=== PATIENT | female | born 1955 | race Caucasian/White ===

== ENCOUNTER 2019-08-23 10:40 | Outpatient (CLI) | payer OTHER, SELFPAY ==
--- NOTE | 2019-08-23 10:46 | US_ITS ---
WS: [id number] INDICATION: Right axilla TECHNIQUE: Ultrasound right axilla FINDINGS: Ultrasound right axillary area of concern. Comparison made to outside MRI breast. Breast re port reviewed. No evidence of axillary lymphadenopathy. No axillary mass or lesion to correspond to findings on outs conrado MRI report. Bilateral breast implants. US/US soft tissue/extremity 82107 IMPRESSION: Normal right axilla. No adenopathy. No cystic or solid mass. Consid er chest CT in further evaluation.
== END 2019-08-23 10:41 | disposition home or self-care (01) ==
LOC: RAD 10:44
PROVIDERS: Family Provider Nurse Practitioner Family; PCP Nurse Practitioner Family; Visit Provider Internal Medicine Medical Oncology
DX: Q83.1 Accessory breast (principal)
CPT/HCPCS: 76882

== ENCOUNTER 2020-04-17 12:51 | Outpatient (CLI) | payer MEDICARE, BC, SELFPAY ==
--- NOTE | 2020-04-17 18:15 | ONC FU_ITS ---
Dr. Silverio Patient Follow-Up Note Patient: Claudia Thapa Unit #: [id number]: 1955 Dicatated By: Lenny Silverio M.D.Date of Visit:Apr 17, 2020 Onc Med Follow-up/Prog Note Chief Complaint: Breast cancer. History of Present Illness: This is a 65 year-old woman with grade 2 invasive ductal carcinoma of the right breast, ER/WI positive and HER-2/rodriguez positive. By clinical evaluation, her disease at initial diagnosis appeared to be stage IIIA (T1c, N2, M0). She had presented in February 2014 with a palpable lump in the upper outer quadrant of the right breast near the right axilla. She had previously undergone breast augmentation with silicon implants, and she initially opted to see her plastic surgeon for evaluation. She underwent excisional biopsy of the mass on 03/13/2014. Pathology was consistent with metastatic breast carcinoma within an intramammary lymph node. The tumor measured 5.4 cm in greatest dimension. It was noted to be encapsulated. It was ER positive at 99% and WI positive at 32%. The HER-2/rodriguez was 2+ by IHC. It did show overexpression of HER-2/rodriguez by FISH with an amplification ratio of 2.6. She then had further evaluation with bilateral breast MRI which showed an irregular enhancing density in the mid segment of the right breast at the 7 to 8 o'clock position. It was estimated at 1.5 cm to 1.9 cm. Approximately 7 mm posterior to this was a 4 mm enhancing nodule. There were no other suspicious findings in the breast, but there were at least 2 abnormally enlarged lymph nodes in the axilla together measuring 30 to 31 mm and an additional smaller lymph nodes also were identified. There were no abnormal areas noted in the left breast, but there were lymph nodes noted in the left axilla, including one node which was estimated at 1.8 cm. She subsequently underwent ultrasound directed needle biopsies of the 2 right breast lesions, one at 7:30 position which did show invasive ductal carcinoma, grade 2. The other, at the 7 o'clock position, showed fibroadenoma. She was then seen at [facility]. She had further evaluation with repeat right breast ultrasound which showed a 0.8 x 0.7 x 0.3 cm lobular hypoechoic mass in the right breast 7 o'clock position, located 7 cm from the nipple. At the 8 o'clock position in the right breast, 10 cm from the nipple, there was a 1.0 x 0.7 x 0.4 cm irregular hypoechoic mass which was thought to correlate with the known malignancy. A small adjacent hypoechoic focus was thought to most likely represent post biopsy change. Also noted was a 0.9 x 0.6 x 0.3 cm intramammary lymph node with a mildly thickened cortex in the 9 o'clock position, 14 cm from the nipple. It was targeted for needle biopsy. There were at least 7 level I axillary lymph nodes identified, several containing silicone. A 2.1 x 1.8 x 1.7 cm node was targeted for needle biopsy. There were no suspicious level II or level III axillary lymph nodes. A prominent oval hypoechoic lymph node in the right supraclavicular region measuring 0.6 cm also was targeted for needle biopsy. Pathology from the needle biopsies showed metastatic adenocarcinoma consistent with breast primary in the right axillary lymph node, but no malignancy in the right breast intramammary lymph node or in the right supraclavicular lymph node. Her staging evaluation showed no evidence of metastatic disease. Per recommendations from [facility], she was given neoadjuvant chemotherapy with 4 cycles of Adriamycin/cyclophosphamide followed by 4 cycles of Perjeta/Taxotere/Herceptin. She completed her 4th cycle of Adriamycin/cyclophosphamide on 06/13/14. She had a followup visit at [facility] on 07/08/14. A repeat ultrasound study at that time did show evidence of treatment response with a decrease in the size of an index asked her lymph node to 1.7 x 1.2 x 1.1 cm compared to 2.8 x 1.8 x 1.8 cm on the pretreatment study. There were no abnormal internal mammary, infraclavicular or supraclavicular lymph nodes identified. Repeat MRI of the abdomen showed the previously described indeterminate liver lesion to be less conspicuous and likely benign. Additional T2 right liver lesions were felt to be likely reflect atypical hemangiomas and a simple cyst. There was no evidence of metastatic disease. She completed her 1st cycle of Perjeta/Taxotere/Herceptin on 07/12/14. She unfortunately experienced multiple toxicities, including fatigue, nausea, diarrhea, and severe indigestion. She also developed dysequilibrium and she experienced periodic electric shocks, which lasted for about 4 days. She also had generalized bone aching following her Neulasta injection, but she did show gradual recovery. She was given a 20% dose reduction in the Taxotere with the remaining 3 cycles. She completed the 4th cycle on 09/12/14. She underwent right skin-sparing mastectomy, right axillary sentinel lymph node dissection, right axillary lymph node dissection, and left prophylactic skin-sparing mastectomy on 10/23/2014. Pathology of the right breast showed 3 nests of residual invasive viable carcinoma. The appearance was suspicious for presentation as tumor emboli within lymphatic spaces. These measured 1.2 mm in greatest extent. The treated tumor bed measured 0.5 x 0.3 cm. The viable tumor cellularity was estimated at approximately 0.5%. Ductal carcinoma in situ was not identified. There was metastatic carcinoma measuring 0.9 cm in one right sentinel axillary lymph node. Two additional right sentinel axillary lymph nodes were negative, but right axillary lymph node dissection did show involvement in 1/16 lymph nodes measuring 0.8 cm in greatest extent. It was negative for extracapsular extension. Pathologic staging was ypT1a, ypN1a. The left mastectomy showed no malignancy in the breast and no involvement in 2 lymph nodes. Following the mastectomy she continued Herceptin on a 3-week dosing schedule. In November 2014 she also started adjuvant hormonal therapy with Femara. In April 2015 she underwent additional reconstructive surgery, which included removal of the expanders and placement of implants. The procedure also included removal of her Port-A-Cath. In May I had her stop Femara temporarily due to an increase in her musculoskeletal pain, but she had subsequently restarted it. She received her final dose of Herceptin on 07/24/2015. I had seen her for a followup visit on 10/21/2015. At that time she did appear to be having increasing symptoms related to Femara, including fatigue and musculoskeletal pain. I did have her stop the medication again. In November 2015 she was seen because of concerns of a possible new lump in her upper chest. Restaging PET/CT on 12/25/2015 showed no evidence for metabolically active malignancy. As of her follow-up visit on 01/20/2016 she had noted significant symptomatic improvement with stopping Femara. I had then recommended changing her adjuvant hormonal therapy to exemestane. She did agree to start taking it in April 2016. I had seen her for a follow-up visit on 11/25/2016. At that time she reported some mild fatigue with the exemestane, and she also had developed plantar fasciitis. She otherwise appeared to be tolerating the treatment well, and there was no evidence clinically for recurrence of her breast cancer. In February 2017 she had called to report a significant increase in her musculoskeletal pain. It was mainly in the hands and left knee, which also was having lower back pain as well as some pain in the right hip area. She was significantly more fatigued. She stopped the exemestane as of 03/02/2017. I had seen her for a follow-up visit on 03/18/2017. At that point her symptoms had not improved significantly. Bone scan on 03/24/2017 showed arthritic activity in the left knee and left wrist and probable periodontal type activity in the left maxilla. There was no evidence of metastatic disease. During this time she also had seen Dr. Burt. Her evaluation with him included an MRI of the left knee on 03/29/2017. It showed an oblique tear in the posterior horn of the meniscus, a mild sprain in the medial collateral ligament, and osseous contusion of the medial femoral condyle. It was able to be managed conservatively. I had seen her for a followup visit in April 2017. I discussed the possibility of continuing adjuvant hormonal therapy with tamoxifen. She ultimately agreed and began tamoxifen 20 mg daily in May 2017. She was then offered the option to take additional adjuvant therapy with neratinib following its approval for use in HER-2/rodriguez positive breast cancer. She started treatment in July 2017 at the recommended dosage of 240 mg daily. As of her follow-up visit on 11/30/2017, she appeared to be tolerating it with acceptable toxicity. In June 2018, at 10 months of treatment, she stopped both tamoxifen and neratinib due to complaints of pressure in her bladder area. Her CT abdomen/pelvis showed an abnormal appearing uterus with evidence of endometrial cavity and/or subendometrial mass or fibroid. She was referred to Dr. Parham, and on evaluation she ultimately was found to have evidence of endometrial polyp. She then opted to restart the tamoxifen but not the neratinib. 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 She ultimately sought a second opinion evaluation at [facility]. She was originally scheduled to have the implants replaced in September, but the procedure was deferred due to the coronavirus pandemic. It was scheduled for April 24. In the meantime, she had developed increasing musculoskeletal pain on the tamoxifen, and she opted to stop taking it in December 2019. Her medical history is otherwise unremarkable. She has had no other medical illnesses. Her baseline bone density was normal, but she did have a low vitamin D level. She is a nonsmoker. INTERIM HISTORY: She is seen for a scheduled visit. She has been feeling much better generally since she has been off the tamoxifen. She is still having some mild discomfort associated with her breast implant, particularly in the right breast. She has good energy and activity tolerance. ECOG score is 0. Her appetite is good. She has had significant weight loss on a keto diet. She has not had fever. She still has some hot flashes, not bad. She has no shortness of breath, cough, or chest pain. She was having acid reflux, but that appeared to been associated with 1 of her vitamin supplements, and it has resolved now. She has loose stools, which she thinks is diet related. She has no complaints. She still has some joint pain, mainly in the right thumb. The left thumb improved significantly following a surgical procedure. Her neck still bothers her at times, but not bad. She does not complain of headache or dizziness, and she has no focal neurologic symptoms. Medications: C-1000 1 Tablet (of 1000 mg) Oral daily, Cholecalciferol 1 (5000 Units) Capsule Oral daily, Vitamin E 1 Capsule Oral daily Allergies: No Known Allergies. Review of Systems: Constitutional - She has good energy and she has normal activity. Appetite is good. She has lost weight on a keto diet. No fever or night sweats. She has some hot flashes, but not bad. ECOG score is 0, ENMT - No sinus congestion/drainage. No mouth sores. No sore throat or difficulty swallowing, Hematologic/Lymphatic - No abnormal bruising or bleeding, Respiratory - No shortness of breath. No cough. No pleuritic pain or hemoptysis, Cardiovascular - No angina pain. No palpitations, Gastrointestinal - No nausea or vomiting. She was having some acid reflux, now resolved. She has loose stools. No blood in the stool or black stools, Genitourinary (F) - No dysuria or hematuria. No urinary frequency. No urgency or incontinence, Musculoskeletal - Her joint pain improved significantly after stopping tamoxifen. She still has some pain in her right thumb. The left thumb improved after surgery, Integumentary - No skin rash, Neurologic - No headache or dizziness. No numbness or tingling. No other focal neurologic symptoms, Psychiatric - No anxiety or depression. No insomnia. Vital Signs: Performed on Apr 17, 2020 13:11 Height - 66.50 in Weight - 158.0 lbs (LOW) BSA - 1.82 sq.m BMI - 25.12 Temperature - 98.1 F (LOW) Pulse - 64 /min Respiration - 18 /min BP - 116/76 mm(hg) O2 Sat - 99 % Pain - 0 Physical Examination: Constitutional - She looks good generally, Eyes - Sclerae nonicteric. Conjunctivae clear, ENMT - There are no lesions noted in the oral cavity, Hematologic/Lymphatic - No cervical, clavicular, or axillary adenopathy, Respiratory - Lungs are clear with good air movement bilaterally, Cardiovascular - Heart rhythm is regular. There is no murmur, gallop or rub noted, Abdomen - Soft. Liver and spleen are not enlarged. There is no abdominal mass or ascites noted and there is no inguinal adenopathy, Extremities - No edema, Neurologic - No focal neurologic deficits noted. Lab/Imaging: CBC shows hemoglobin 14.4 g, white blood cell count 7200, and platelet count 308,000. Comprehensive metabolic profile is unremarkable. Impression: 1. Patient with grade 2 invasive ductal carcinoma of the right breast, ER/WI positive and HER-2/rodriguez positive. By clinical evaluation her disease appeared to be stage IIIA (T1c, N2, M0). Her initial evaluation included excisional biopsy of an upper outer quadrant right breast mass and ultrasound directed needle biopsies of inferior right breast lesions, lateral right breast intramammary lymph node, right axillary lymph node, and right supraclavicular lymph node. 2. She was then given neoadjuvant chemotherapy with 4 cycles of Adriamycin/cyclophosphamide followed by 4 cycles of Perjeta/Taxotere/Herceptin. She experienced multiple toxicities with the first cycle of PTH, and she received a 20% dose reduction in the Taxotere with cycles 2, 3, and 4. She completed the chemotherapy on 09/12/14. 3. She underwent right skin sparing mastectomy and left prophylactic skin sparing mastectomy on 10/23/14. The procedure also included right axillary sentinel lymph node dissection and right axillary lymph node dissection. There was minimal residual invasive viable carcinoma in the mastectomy and there was involvement in a total of 2/ axillary lymph nodes. Final staging was ypT1a, ypN1a. 4. Following the chemotherapy, she continued single agent Herceptin at a 3 week dosing interval, completing 52 weeks of treatment on 07/24/2015. 5. Adjuvant hormonal therapy with Femara began in November 2014. It was stopped temporarily due to increasing joint pain and nausea, but she was then able to restart it. She had stopped Femara permanently as of 10/21/2015 due to increasing fatigue and musculoskeletal pain. 6. A restaging PET/CT on 12/25/2015 showed no evidence for active malignancy. As of her followup visit on 01/20/2016 she had noted significant improvement in her musculoskeletal pain and other side effects associated with Femara. 7. In April 2016 she began further adjuvant hormonal therapy with exemestane 25 mg daily. It was stopped as of February 2017 due to musculoskeletal pain. 8. In May 2017 she began further adjuvant hormonal therapy with tamoxifen 20 mg daily and in July 2017 she also began on adjuvant treatment with neratinib 240 mg daily. 9. In June 2018 both the tamoxifen and the neratinib were put on hold after she was found to have CT evidence of a possible endometrial mass. She was referred to Dr. Parham, and on evaluation she was found to have an endometrial polyp. She had subsequently restarted tamoxifen, but not the neratinib. 10. In December 2019 she stopped tamoxifen due to worsening joint pain. She has been feeling much better generally since stopping the tamoxifen. 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 She is now scheduled to have them replaced on April 24. Overall, she appears to be doing well clinically with no evidence of recurrence of the breast cancer. Plan: She remains on observation/expectant management for the breast cancer. I will see her again in 1 year, or sooner as needed. Signed By: Lenny Silverio M.D. <<Signature on File>>
== END 2020-04-17 12:52 | disposition home or self-care (01) ==
LOC: ONCMED 12:57
PROVIDERS: PCP Nurse Practitioner Family; Visit Provider Internal Medicine Medical Oncology
DX: Z08 Encounter for follow-up examination after completed treatment for malignant neoplasm (principal); Z85.3 Personal history of malignant neoplasm of breast; Z92.23 Personal history of estrogen therapy; Z92.21 Personal history of antineoplastic chemotherapy; Z92.22 Personal history of monoclonal drug therapy; Z90.13 Acquired absence of bilateral breasts and nipples
CPT/HCPCS: G0463

== ENCOUNTER 2020-06-17 07:55 | Outpatient (CLI) | payer MEDICARE, BC, SELFPAY ==
--- NOTE | 2020-06-20 13:58 | ONC FU_ITS ---
Dr. Silverio Patient Follow-Up Note Patient: Claudia Thapa Unit #: [id number]: 1955 Dicatated By: Lenny Silverio M.D.Date of Visit:Jun 17, 2020 Onc Med Follow-up/Prog Note Chief Complaint: Breast cancer. History of Present Illness: This is a 65 year-old woman with grade 2 invasive ductal carcinoma of the right breast, ER/MO positive and HER-2/rodrigeuz positive. By clinical evaluation, her disease at initial diagnosis appeared to be stage IIIA (T1c, N2, M0). She had presented in February 2014 with a palpable lump in the upper outer quadrant of the right breast near the right axilla. She had previously undergone breast augmentation with silicon implants, and she initially opted to see her plastic surgeon for evaluation. She underwent excisional biopsy of the mass on 03/13/2014. Pathology was consistent with metastatic breast carcinoma within an intramammary lymph node. The tumor measured 5.4 cm in greatest dimension. It was noted to be encapsulated. It was ER positive at 99% and MO positive at 32%. The HER-2/rodriguez was 2+ by IHC. It did show overexpression of HER-2/rodriguez by FISH with an amplification ratio of 2.6. She then had further evaluation with bilateral breast MRI which showed an irregular enhancing density in the mid segment of the right breast at the 7 to 8 o'clock position. It was estimated at 1.5 cm to 1.9 cm. Approximately 7 mm posterior to this was a 4 mm enhancing nodule. There were no other suspicious findings in the breast, but there were at least 2 abnormally enlarged lymph nodes in the axilla together measuring 30 to 31 mm and an additional smaller lymph nodes also were identified. There were no abnormal areas noted in the left breast, but there were lymph nodes noted in the left axilla, including one node which was estimated at 1.8 cm. She subsequently underwent ultrasound directed needle biopsies of the 2 right breast lesions, one at 7:30 position which did show invasive ductal carcinoma, grade 2. The other, at the 7 o'clock position, showed fibroadenoma. She was then seen at [facility]. She had further evaluation with repeat right breast ultrasound which showed a 0.8 x 0.7 x 0.3 cm lobular hypoechoic mass in the right breast 7 o'clock position, located 7 cm from the nipple. At the 8 o'clock position in the right breast, 10 cm from the nipple, there was a 1.0 x 0.7 x 0.4 cm irregular hypoechoic mass which was thought to correlate with the known malignancy. A small adjacent hypoechoic focus was thought to most likely represent post biopsy change. Also noted was a 0.9 x 0.6 x 0.3 cm intramammary lymph node with a mildly thickened cortex in the 9 o'clock position, 14 cm from the nipple. It was targeted for needle biopsy. There were at least 7 level I axillary lymph nodes identified, several containing silicone. A 2.1 x 1.8 x 1.7 cm node was targeted for needle biopsy. There were no suspicious level II or level III axillary lymph nodes. A prominent oval hypoechoic lymph node in the right supraclavicular region measuring 0.6 cm also was targeted for needle biopsy. Pathology from the needle biopsies showed metastatic adenocarcinoma consistent with breast primary in the right axillary lymph node, but no malignancy in the right breast intramammary lymph node or in the right supraclavicular lymph node. Her staging evaluation showed no evidence of metastatic disease. Per recommendations from [facility], she was given neoadjuvant chemotherapy with 4 cycles of Adriamycin/cyclophosphamide followed by 4 cycles of Perjeta/Taxotere/Herceptin. She completed her 4th cycle of Adriamycin/cyclophosphamide on 06/13/14. She had a followup visit at [facility] on 07/08/14. A repeat ultrasound study at that time did show evidence of treatment response with a decrease in the size of an index asked her lymph node to 1.7 x 1.2 x 1.1 cm compared to 2.8 x 1.8 x 1.8 cm on the pretreatment study. There were no abnormal internal mammary, infraclavicular or supraclavicular lymph nodes identified. Repeat MRI of the abdomen showed the previously described indeterminate liver lesion to be less conspicuous and likely benign. Additional T2 right liver lesions were felt to be likely reflect atypical hemangiomas and a simple cyst. There was no evidence of metastatic disease. She completed her 1st cycle of Perjeta/Taxotere/Herceptin on 07/12/14. She unfortunately experienced multiple toxicities, including fatigue, nausea, diarrhea, and severe indigestion. She also developed dysequilibrium and she experienced periodic electric shocks, which lasted for about 4 days. She also had generalized bone aching following her Neulasta injection, but she did show gradual recovery. She was given a 20% dose reduction in the Taxotere with the remaining 3 cycles. She completed the 4th cycle on 09/12/14. She underwent right skin-sparing mastectomy, right axillary sentinel lymph node dissection, right axillary lymph node dissection, and left prophylactic skin-sparing mastectomy on 10/23/2014. Pathology of the right breast showed 3 nests of residual invasive viable carcinoma. The appearance was suspicious for presentation as tumor emboli within lymphatic spaces. These measured 1.2 mm in greatest extent. The treated tumor bed measured 0.5 x 0.3 cm. The viable tumor cellularity was estimated at approximately 0.5%. Ductal carcinoma in situ was not identified. There was metastatic carcinoma measuring 0.9 cm in one right sentinel axillary lymph node. Two additional right sentinel axillary lymph nodes were negative, but right axillary lymph node dissection did show involvement in 1/16 lymph nodes measuring 0.8 cm in greatest extent. It was negative for extracapsular extension. Pathologic staging was ypT1a, ypN1a. The left mastectomy showed no malignancy in the breast and no involvement in 2 lymph nodes. Following the mastectomy she continued Herceptin on a 3-week dosing schedule. In November 2014 she also started adjuvant hormonal therapy with Femara. In April 2015 she underwent additional reconstructive surgery, which included removal of the expanders and placement of implants. The procedure also included removal of her Port-A-Cath. In May I had her stop Femara temporarily due to an increase in her musculoskeletal pain, but she had subsequently restarted it. She received her final dose of Herceptin on 07/24/2015. I had seen her for a followup visit on 10/21/2015. At that time she did appear to be having increasing symptoms related to Femara, including fatigue and musculoskeletal pain. I did have her stop the medication again. In November 2015 she was seen because of concerns of a possible new lump in her upper chest. Restaging PET/CT on 12/25/2015 showed no evidence for metabolically active malignancy. As of her follow-up visit on 01/20/2016 she had noted significant symptomatic improvement with stopping Femara. I had then recommended changing her adjuvant hormonal therapy to exemestane. She did agree to start taking it in April 2016. I had seen her for a follow-up visit on 11/25/2016. At that time she reported some mild fatigue with the exemestane, and she also had developed plantar fasciitis. She otherwise appeared to be tolerating the treatment well, and there was no evidence clinically for recurrence of her breast cancer. In February 2017 she had called to report a significant increase in her musculoskeletal pain. It was mainly in the hands and left knee, which also was having lower back pain as well as some pain in the right hip area. She was significantly more fatigued. She stopped the exemestane as of 03/02/2017. I had seen her for a follow-up visit on 03/18/2017. At that point her symptoms had not improved significantly. Bone scan on 03/24/2017 showed arthritic activity in the left knee and left wrist and probable periodontal type activity in the left maxilla. There was no evidence of metastatic disease. During this time she also had seen Dr. Burt. Her evaluation with him included an MRI of the left knee on 03/29/2017. It showed an oblique tear in the posterior horn of the meniscus, a mild sprain in the medial collateral ligament, and osseous contusion of the medial femoral condyle. It was able to be managed conservatively. I had seen her for a followup visit in April 2017. I discussed the possibility of continuing adjuvant hormonal therapy with tamoxifen. She ultimately agreed and began tamoxifen 20 mg daily in May 2017. She was then offered the option to take additional adjuvant therapy with neratinib following its approval for use in HER-2/rodriguez positive breast cancer. She started treatment in July 2017 at the recommended dosage of 240 mg daily. As of her follow-up visit on 11/30/2017, she appeared to be tolerating it with acceptable toxicity. In June 2018, at 10 months of treatment, she stopped both tamoxifen and neratinib due to complaints of pressure in her bladder area. Her CT abdomen/pelvis showed an abnormal appearing uterus with evidence of endometrial cavity and/or subendometrial mass or fibroid. She was referred to Dr. Parham, and on evaluation she ultimately was found to have evidence of endometrial polyp. She then opted to restart the tamoxifen but not the neratinib. 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 She ultimately sought a second opinion evaluation at [facility]. She was originally scheduled to have the implants replaced in September, but the procedure was deferred due to the coronavirus pandemic. In the meantime, she had developed increasing musculoskeletal pain on the tamoxifen, and she opted to stop taking it in December 2019. Her medical history is otherwise unremarkable. She has had no other medical illnesses. Her baseline bone density was normal, but she did have a low vitamin D level. She is a nonsmoker. INTERIM HISTORY: On 04/24/2020 she underwent replacement of her breast implants. Pathology showed no evidence for implant associated anaplastic large cell lymphoma. She experienced no complications with the procedure. She is seen for an unplanned visit. Her main concern is that she has been having pain in the top right quadrant of her back. The pain is fairly constant, and it radiates into the right arm. She also has some pain in the neck area, and she has some associated headache in the back of her head. She also has become more of a knot in her upper left chest wall. She has good energy, and her ECOG score is 0. She also has good appetite. She has been on a keto diet and she has had a weight loss of 14 pounds. She has not had fever. She does have hot flashes at least once or twice a night. She does not complain of shortness of breath or cough. She still has some discomfort in the chest area following her surgery, but she otherwise is not having chest pain. She has no GI/ complaints other than loose stools, which she attributes to her keto diet. She has no focal neurologic symptoms. Medications: C-1000 1 Tablet (of 1000 mg) Oral daily, Cholecalciferol 1 (5000 Units) Capsule Oral daily, Vitamin E 1 Capsule Oral daily Allergies: No Known Allergies. Review of Systems: Constitutional - She has good energy and her activity is pretty much back to normal. Her appetite is good. She has been on a keto diet, and she has had a weight loss in the range of 15 pounds. She does not have fever. She does have at least 1 or 2 hot flashes during the night. ECOG score is 0, ENMT - No sinus congestion/drainage. No mouth sores. No sore throat or difficulty swallowing, Hematologic/Lymphatic - No abnormal bruising or bleeding, Respiratory - No shortness of breath. No cough. No pleuritic pain or hemoptysis, Cardiovascular - No angina pain. No palpitations, Gastrointestinal - No nausea or vomiting. No heartburn or acid reflux. Her bowels are loose most of the time. No blood in the stool or black stools, Genitourinary (F) - No dysuria or hematuria. No urinary frequency. No urgency or incontinence, Musculoskeletal - She has some chest discomfort following her surgery last month. She has been having fairly constant pain in the upper right quadrant of her back, not pain does tend to go into the right arm. She also has some neck pain associated with it, Integumentary - No skin rash, Neurologic - She has some headache in the occipital area associated with the neck pain. No dizziness. No numbness or tingling. No other focal neurologic symptoms, Psychiatric - She has some work-related stress/anxiety. No depression. No insomnia. Vital Signs: Performed on Jun 17, 2020 08:09 Height - 66.50 in Weight - 161.0 lbs (HIGH) BSA - 1.83 sq.m BMI - 25.60 Temperature - 98.2 F (LOW) Pulse - 66 /min Respiration - 18 /min BP - 126/78 mm(hg) O2 Sat - 98 % Pain - 6 Physical Examination: Constitutional - She looks good generally, Eyes - Sclerae nonicteric. Conjunctivae clear, ENMT - No lesions noted in the oral cavity, Neck - No mass or thyromegaly, Hematologic/Lymphatic - No cervical or clavicular adenopathy, Respiratory - Lungs are clear with good air movement bilaterally, Cardiovascular - Heart rhythm is regular. There is no murmur, gallop, or rub noted, Chest - There is some prominence at the clavicular head on the left side. There is also a little prominence and some tenderness overlying the sternal manubrium, Breasts - There are no lesions noted in the chest wall/reconstruction bilaterally. There is no axillary adenopathy, Abdomen - Soft. Liver and spleen are not enlarged. There is no abdominal mass or ascites noted and there is no inguinal adenopathy, Back/Spine - There is tenderness in the mid thoracic spine and there is tenderness in the infrascapular area on the right side, Extremities - Trace lower extremity edema, Neurologic - No focal neurologic deficits noted. Impression: 1. Patient with grade 2 invasive ductal carcinoma of the right breast, ER/MO positive and HER-2/rodriguez positive. By clinical evaluation her disease appeared to be stage IIIA (T1c, N2, M0). Her initial evaluation included excisional biopsy of an upper outer quadrant right breast mass and ultrasound directed needle biopsies of inferior right breast lesions, lateral right breast intramammary lymph node, right axillary lymph node, and right supraclavicular lymph node. 2. She was then given neoadjuvant chemotherapy with 4 cycles of Adriamycin/cyclophosphamide followed by 4 cycles of Perjeta/Taxotere/Herceptin. She experienced multiple toxicities with the first cycle of PTH, and she received a 20% dose reduction in the Taxotere with cycles 2, 3, and 4. She completed the chemotherapy on 09/12/14. 3. She underwent right skin sparing mastectomy and left prophylactic skin sparing mastectomy on 10/23/14. The procedure also included right axillary sentinel lymph node dissection and right axillary lymph node dissection. There was minimal residual invasive viable carcinoma in the mastectomy and there was involvement in a total of 2/19 axillary lymph nodes. Final staging was ypT1a, ypN1a. 4. Following the chemotherapy, she continued single agent Herceptin at a 3 week dosing interval, completing 52 weeks of treatment on 07/24/2015. 5. Adjuvant hormonal therapy with Femara began in November 2014. It was stopped temporarily due to increasing joint pain and nausea, but she was then able to restart it. She had stopped Femara permanently as of 10/21/2015 due to increasing fatigue and musculoskeletal pain. 6. A restaging PET/CT on 12/25/2015 showed no evidence for active malignancy. As of her followup visit on 01/20/2016 she had noted significant improvement in her musculoskeletal pain and other side effects associated with Femara. 7. In April 2016 she began further adjuvant hormonal therapy with exemestane 25 mg daily. It was stopped as of February 2017 due to musculoskeletal pain. 8. In May 2017 she began further adjuvant hormonal therapy with tamoxifen 20 mg daily and in July 2017 she also began on adjuvant treatment with neratinib 240 mg daily. 9. In June 2018 both the tamoxifen and the neratinib were put on hold after she was found to have CT evidence of a possible endometrial mass. She was referred to Dr. Parham, and on evaluation she was found to have an endometrial polyp. She had subsequently restarted tamoxifen, but not the neratinib. 10. In December 2019 she stopped tamoxifen due to worsening joint pain. She had improvement in her musculoskeletal pain after stopping tamoxifen, and she also felt better generally. As of her follow-up visit on 04/17/2020 there was no evidence of recurrence of the breast cancer. On 04/24/2020 she underwent replacement of her breast implants, which had been recalled. Pathology showed no evidence of implant associated anaplastic large cell lymphoma. She comes in now with some new pain in the upper back on the right side. The cause is uncertain, but it may be originating from the mid thoracic spine. She also has a bony prominence at the left clavicular head. I think this is most likely all due to degenerative disease. While recurrence of her breast cancer cannot be excluded, it appears to be unlikely. Plan: At least initially I will just check x-rays of the thoracic spine and chest. She will have further evaluation as indicated if there is anything suspicious on the x-rays or if her symptoms worsen. Signed By: Lenny Silverio M.D. <<Signature on File>>
== END 2020-06-17 07:56 | disposition home or self-care (01) ==
LOC: ONCMED 07:58
PROVIDERS: PCP Nurse Practitioner Family; Visit Provider Internal Medicine Medical Oncology
DX: M54.6 Pain in thoracic spine (principal); Z85.3 Personal history of malignant neoplasm of breast; Z92.23 Personal history of estrogen therapy; Z92.21 Personal history of antineoplastic chemotherapy; Z90.13 Acquired absence of bilateral breasts and nipples
CPT/HCPCS: G0463

== ENCOUNTER 2021-05-27 08:03 | Outpatient (CLI) | payer MEDICARE, BC, SELFPAY ==
[2021-05-27 08:29] LABS: Basophils % 0.5 %; Eosinophils # 0.3 10^3/uL (0.0-0.8); Eosinophils % 5.9 %; Hemoglobin 14.4 g/dL (11.5-15.3); Lymphocytes % 34.8 %; Mean Corpuscular HGB Conc 32.7 g/dL (30.0-36.0); Mean Corpuscular Hemoglobin 30.1 pg (28.0-34.0); Mean Corpuscular Volume 92.1 fl (81-99); Mean Platelet Volume 8.8 fL (7.4-10.4); Monocytes # 0.6 10^3/uL (0.2-0.9); Monocytes % 9.8 %; Neutrophils # 2.84 10^3/uL (1.8-7.7); Neutrophils % 48.8 %; Nucleated Red Blood Cells % 0 %; Platelet Count 288 10^3/cmm (130-400); Red Blood Count 4.78 10^6/uL (4.1-5.3); Red Cell Distribution Width 13.8 % (12.1-15.1); White Blood Count 5.8 10^3/uL (4.0-10.0)
[2021-05-27 09:27] LABS: 25 Hydroxy Vitamin D 77 ng/mL (30-100); Alanine Aminotransferase 15 U/L (0-33); Albumin Level 4.1 g/dL (3.5-5.2); Alkaline Phosphatase 83 IU/L (35-105); Aspartate Amino Transferase 21 U/L (0-32); Blood Urea Nitrogen 15 mg/dL (8-23); Calcium 9.3 mg/dL (8.5-10.5); Chloride 101 mmol/L (98-107); Globulin 2.5 g/dL (1.3-4.6); Glucose 115 mg/dL (65-115); Osmolality Calculated 290 mOsm/kg (285-295); Potassium 3.8 mmol/L (3.5-5.1); Sodium 139 mmol/L (136-145); Total Bilirubin 0.2 mg/dL (0.15-1.2); Total Protein 6.6 g/dL (6.6-8.7)
--- NOTE | 2021-05-27 20:05 | ONC FU_ITS ---
Dr. Silverio Patient Follow-Up Note Patient: Claudia Thapa Unit #: [id number]: 1955 Dicatated By: Lenny Silverio M.D.Date of Visit:May 27, 2021 Onc Med Follow-up/Prog Note Chief Complaint: Breast cancer. History of Present Illness: This is a 66 year-old woman with grade 2 invasive ductal carcinoma of the right breast, ER/WY positive and HER-2/rodriguez positive. By clinical evaluation, her disease at initial diagnosis appeared to be stage IIIA (T1c, N2, M0). She had presented in February 2014 with a palpable lump in the upper outer quadrant of the right breast near the right axilla. She had previously undergone breast augmentation with silicon implants, and she initially opted to see her plastic surgeon for evaluation. She underwent excisional biopsy of the mass on 03/13/2014. Pathology was consistent with metastatic breast carcinoma within an intramammary lymph node. The tumor measured 5.4 cm in greatest dimension. It was noted to be encapsulated. It was ER positive at 99% and WY positive at 32%. The HER-2/rodriguez was 2+ by IHC. It did show overexpression of HER-2/rodriguez by FISH with an amplification ratio of 2.6. She then had further evaluation with bilateral breast MRI which showed an irregular enhancing density in the mid segment of the right breast at the 7 to 8 o'clock position. It was estimated at 1.5 cm to 1.9 cm. Approximately 7 mm posterior to this was a 4 mm enhancing nodule. There were no other suspicious findings in the breast, but there were at least 2 abnormally enlarged lymph nodes in the axilla together measuring 30 to 31 mm and an additional smaller lymph nodes also were identified. There were no abnormal areas noted in the left breast, but there were lymph nodes noted in the left axilla, including one node which was estimated at 1.8 cm. She subsequently underwent ultrasound directed needle biopsies of the 2 right breast lesions, one at 7:30 position which did show invasive ductal carcinoma, grade 2. The other, at the 7 o'clock position, showed fibroadenoma. She was then seen at [facility]. She had further evaluation with repeat right breast ultrasound which showed a 0.8 x 0.7 x 0.3 cm lobular hypoechoic mass in the right breast 7 o'clock position, located 7 cm from the nipple. At the 8 o'clock position in the right breast, 10 cm from the nipple, there was a 1.0 x 0.7 x 0.4 cm irregular hypoechoic mass which was thought to correlate with the known malignancy. A small adjacent hypoechoic focus was thought to most likely represent post biopsy change. Also noted was a 0.9 x 0.6 x 0.3 cm intramammary lymph node with a mildly thickened cortex in the 9 o'clock position, 14 cm from the nipple. It was targeted for needle biopsy. There were at least 7 level I axillary lymph nodes identified, several containing silicone. A 2.1 x 1.8 x 1.7 cm node was targeted for needle biopsy. There were no suspicious level II or level III axillary lymph nodes. A prominent oval hypoechoic lymph node in the right supraclavicular region measuring 0.6 cm also was targeted for needle biopsy. Pathology from the needle biopsies showed metastatic adenocarcinoma consistent with breast primary in the right axillary lymph node, but no malignancy in the right breast intramammary lymph node or in the right supraclavicular lymph node. Her staging evaluation showed no evidence of metastatic disease. Per recommendations from MD Royce, she was given neoadjuvant chemotherapy with 4 cycles of Adriamycin/cyclophosphamide followed by 4 cycles of Perjeta/Taxotere/Herceptin. She completed her 4th cycle of Adriamycin/cyclophosphamide on 06/13/14. She had a followup visit at [facility] on 07/08/14. A repeat ultrasound study at that time did show evidence of treatment response with a decrease in the size of an index asked her lymph node to 1.7 x 1.2 x 1.1 cm compared to 2.8 x 1.8 x 1.8 cm on the pretreatment study. There were no abnormal internal mammary, infraclavicular or supraclavicular lymph nodes identified. Repeat MRI of the abdomen showed the previously described indeterminate liver lesion to be less conspicuous and likely benign. Additional T2 right liver lesions were felt to be likely reflect atypical hemangiomas and a simple cyst. There was no evidence of metastatic disease. She completed her 1st cycle of Perjeta/Taxotere/Herceptin on 07/12/14. She unfortunately experienced multiple toxicities, including fatigue, nausea, diarrhea, and severe indigestion. She also developed dysequilibrium and she experienced periodic electric shocks, which lasted for about 4 days. She also had generalized bone aching following her Neulasta injection, but she did show gradual recovery. She was given a 20% dose reduction in the Taxotere with the remaining 3 cycles. She completed the 4th cycle on 09/12/14. She underwent right skin-sparing mastectomy, right axillary sentinel lymph node dissection, right axillary lymph node dissection, and left prophylactic skin-sparing mastectomy on 10/23/2014. Pathology of the right breast showed 3 nests of residual invasive viable carcinoma. The appearance was suspicious for presentation as tumor emboli within lymphatic spaces. These measured 1.2 mm in greatest extent. The treated tumor bed measured 0.5 x 0.3 cm. The viable tumor cellularity was estimated at approximately 0.5%. Ductal carcinoma in situ was not identified. There was metastatic carcinoma measuring 0.9 cm in one right sentinel axillary lymph node. Two additional right sentinel axillary lymph nodes were negative, but right axillary lymph node dissection did show involvement in 1/16 lymph nodes measuring 0.8 cm in greatest extent. It was negative for extracapsular extension. Pathologic staging was ypT1a, ypN1a. The left mastectomy showed no malignancy in the breast and no involvement in 2 lymph nodes. Following the mastectomy she continued Herceptin on a 3-week dosing schedule. In November 2014 she also started adjuvant hormonal therapy with Femara. In April 2015 she underwent additional reconstructive surgery, which included removal of the expanders and placement of implants. The procedure also included removal of her Port-A-Cath. In May I had her stop Femara temporarily due to an increase in her musculoskeletal pain, but she had subsequently restarted it. She received her final dose of Herceptin on 07/24/2015. I had seen her for a followup visit on 10/21/2015. At that time she did appear to be having increasing symptoms related to Femara, including fatigue and musculoskeletal pain. I did have her stop the medication again. In November 2015 she was seen because of concerns of a possible new lump in her upper chest. Restaging PET/CT on 12/25/2015 showed no evidence for metabolically active malignancy. As of her follow-up visit on 01/20/2016 she had noted significant symptomatic improvement with stopping Femara. I had then recommended changing her adjuvant hormonal therapy to exemestane. She did agree to start taking it in April 2016. I had seen her for a follow-up visit on 11/25/2016. At that time she reported some mild fatigue with the exemestane, and she also had developed plantar fasciitis. She otherwise appeared to be tolerating the treatment well, and there was no evidence clinically for recurrence of her breast cancer. In February 2017 she had called to report a significant increase in her musculoskeletal pain. It was mainly in the hands and left knee, which also was having lower back pain as well as some pain in the right hip area. She was significantly more fatigued. She stopped the exemestane as of 03/02/2017. I had seen her for a follow-up visit on 03/18/2017. At that point her symptoms had not improved significantly. Bone scan on 03/24/2017 showed arthritic activity in the left knee and left wrist and probable periodontal type activity in the left maxilla. There was no evidence of metastatic disease. During this time she also had seen Dr. Burt. Her evaluation with him included an MRI of the left knee on 03/29/2017. It showed an oblique tear in the posterior horn of the meniscus, a mild sprain in the medial collateral ligament, and osseous contusion of the medial femoral condyle. It was able to be managed conservatively. I had seen her for a followup visit in April 2017. I discussed the possibility of continuing adjuvant hormonal therapy with tamoxifen. She ultimately agreed and began tamoxifen 20 mg daily in May 2017. She was then offered the option to take additional adjuvant therapy with neratinib following its approval for use in HER-2/rodriguez positive breast cancer. She started treatment in July 2017 at the recommended dosage of 240 mg daily. As of her follow-up visit on 11/30/2017, she appeared to be tolerating it with acceptable toxicity. In June 2018, at 10 months of treatment, she stopped both tamoxifen and neratinib due to complaints of pressure in her bladder area. Her CT abdomen/pelvis showed an abnormal appearing uterus with evidence of endometrial cavity and/or subendometrial mass or fibroid. She was referred to Dr. Parham, and on evaluation she ultimately was found to have evidence of endometrial polyp. She then opted to restart the tamoxifen but not the neratinib. 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 She ultimately sought a second opinion evaluation at [facility]. She was originally scheduled to have the implants replaced in September, but the procedure was deferred due to the coronavirus pandemic. In the meantime, she had developed increasing musculoskeletal pain on the tamoxifen, and she opted to stop taking it in December 2019. Her medical history is otherwise unremarkable. She has had no other medical illnesses. Her baseline bone density was normal, but she did have a low vitamin D level. She is a nonsmoker. INTERIM HISTORY: On 04/24/2020 she underwent replacement of her breast implants. Pathology showed no evidence for implant associated anaplastic large cell lymphoma. She continued expectant management for the breast cancer. She is seen for a follow-up visit. Her only significant complaint is that her breast reconstruction last April was messed up , and she will be undergoing some further reconstructive surgery. She has been feeling good generally, though. She has good energy and activity tolerance. ECOG score is 0. Appetite also is good. She has not had fever. She has hot flashes/sweating once a night. She has not had sore mouth or throat. She has no shortness of breath, cough, or chest pain. She has occasional bouts of diarrhea, attributable to one of her dietary supplements. She has no other GI or complaints. She currently is not having any significant joint or bone pain. She does not complain of headache or dizziness, and she has no focal neurologic symptoms. Medications: C-1000 1 Tablet (of 1000 mg) Oral daily, Cholecalciferol 1 (5000 Units) Capsule Oral daily, Vitamin E 1 Capsule Oral daily Allergies: No Known Allergies. Vital Signs: Performed on May 27, 2021 10:44 Height - 66.50 in Weight - 156.8 lbs (LOW) BSA - 1.81 sq.m BMI - 24.93 Temperature - 97.0 F (LOW) Pulse - 63 /min Respiration - 18 /min BP - 118/73 mm(hg) O2 Sat - 99 % Pain - 0 Fatigue - 0 Physical Examination: Constitutional - She looks good generally, Eyes - Sclerae nonicteric. Conjunctivae clear, ENMT - No lesions noted in the oral cavity, Hematologic/Lymphatic - No cervical or clavicular adenopathy, Respiratory - Lungs are clear with good air movement bilaterally, Cardiovascular - Heart rhythm is regular. There is no murmur, gallop, or rub noted, Breasts - There are no lesions noted in the chest wall/reconstruction bilaterally. There is no axillary adenopathy, Abdomen - Soft. Liver and spleen are not enlarged. There is no abdominal mass or ascites noted and there is no inguinal adenopathy, Extremities - No edema, Neurologic - No focal neurologic deficits noted. Lab/Imaging: Test performed on May 27, 2021 08:20 Sodium 139 mmol/L Vitamin D (25-Hydroxy), Total 77 ng/mL Potassium 3.8 mmol/L Chloride 101 mmol/L CO2 32 mmol/L Anion Gap 9.8 BUN 15 mg/dL Creatinine 0.6 mg/dL Cr Clearance (Est) 106.7300 mL/min eGFR 100.0 mL/min Glucose 115 mg/dL Osmolality - Calculated 290 mOsm/kg Calcium 9.3 mg/dL Protein, Total 6.6 g/dL Albumin 4.1 g/dL Globulin 2.5 g/dL Bilirubin, Total 0.2 mg/dL ALT (SGPT) 15 U/L AST (SGOT) 21 U/L Alkaline Phosphatase 83 IU/L WBC 5.8 10 3/uL RBC 4.78 10 6/uL HGB 14.4 g/dL HCT 44.0 % MCV 92.1 fl MCH 30.1 pg MCHC 32.7 g/dL RDW 13.8 % Platelet Count 288 10 3/cmm MPV 8.8 fL Neutrophils 2.84 10 3/uL Lymphocytes 2.0 10 3/uL Monocytes 0.6 10 3/uL Eosinophils 0.3 10 3/uL Basophils 0.0 10 3/uL Neutrophil % 48.8 % Lymphocyte % 34.8 % Monocyte % 9.8 % Eosinophil % 5.9 % Basophils % 0.5 % NRBC % 0 % Problem List: 1. Grade 2 invasive ductal carcinoma of the right breast, ER/WY positive and HER-2/rodriguez positive. By clinical evaluation her disease appeared to be stage IIIA (T1c, N2, M0). Her initial evaluation included excisional biopsy of an upper outer quadrant right breast mass and ultrasound directed needle biopsies of inferior right breast lesions, lateral right breast intramammary lymph node, right axillary lymph node, and right supraclavicular lymph node. 2. On 04/24/2020 she underwent replacement of her breast implants, which had been recalled. Pathology showed no evidence of implant associated anaplastic large cell lymphoma. Problems Addressed with this Encounter and Plan: Patient with grade 2 invasive ductal carcinoma of the right breast, ER/WY positive and HER-2/rodriugez positive. By clinical evaluation her disease appeared to be stage IIIA (T1c, N2, M0). Her initial evaluation included excisional biopsy of an upper outer quadrant right breast mass and ultrasound directed needle biopsies of inferior right breast lesions, lateral right breast intramammary lymph node, right axillary lymph node, and right supraclavicular lymph node. She was then given neoadjuvant chemotherapy with 4 cycles of Adriamycin/cyclophosphamide followed by 4 cycles of Perjeta/Taxotere/Herceptin. She experienced multiple toxicities with the first cycle of PTH, and she received a 20% dose reduction in the Taxotere with cycles 2, 3, and 4. She completed the chemotherapy on 09/12/2014. She underwent right skin sparing mastectomy and left prophylactic skin sparing mastectomy on 10/23/14. The procedure also included right axillary sentinel lymph node dissection and right axillary lymph node dissection. There was minimal residual invasive viable carcinoma in the mastectomy and there was involvement in a total of 2/19 axillary lymph nodes. Final staging was ypT1a, ypN1a. Following the chemotherapy, she continued single agent Herceptin at a 3-week dosing interval, completing 52 weeks of treatment on 07/24/2015. Adjuvant hormonal therapy with Femara began in November 2014. It was stopped temporarily due to increasing joint pain and nausea, but she was then able to restart it. She had stopped Femara permanently as of 10/21/2015 due to increasing fatigue and musculoskeletal pain. A restaging PET/CT on 12/25/2015 showed no evidence for active malignancy. In April 2016 she began further adjuvant hormonal therapy with exemestane 25 mg daily. It was stopped as of February 2017 due to musculoskeletal pain. In May 2017 she began further adjuvant hormonal therapy with tamoxifen 20 mg daily and in July 2017 she also began on adjuvant treatment with neratinib 240 mg daily. 9. In June 2018 both the tamoxifen and the neratinib were put on hold after she was found to have CT evidence of a possible endometrial mass. She was referred to Dr. Parham, and on evaluation she was found to have an endometrial polyp. She had subsequently restarted tamoxifen, but not the neratinib. In December 2019 she stopped tamoxifen due to worsening joint pain. She had improvement in her musculoskeletal pain after stopping tamoxifen, and she also felt better generally. As of her follow-up visit on 04/17/2020 there was no evidence of recurrence of the breast cancer. On 04/24/2020 she underwent replacement of her breast implants, which had been recalled. Pathology showed no evidence of implant associated anaplastic large cell lymphoma. She indicates that she is going to be having some further reconstructive surgery, but she is otherwise doing very well clinically with no evidence of recurrence of the breast cancer, now 7 years out from her initial diagnosis. I will see her again in 1 year. Signed By: Lenny Silverio M.D. <<Signature on File>>
[2021-05-27 20:59] LABS: Anion Gap 12.8 (5-19); Carbon Dioxide 29 mmol/L (22-29)
== END 2021-05-27 08:04 | disposition home or self-care (01) ==
PROVIDERS: PCP Nurse Practitioner Family; Visit Provider Internal Medicine Medical Oncology
DX: C50.911 Malignant neoplasm of unspecified site of right female breast (principal); Z17.0 Estrogen receptor positive status [ER+]; E55.9 Vitamin D deficiency, unspecified
CPT/HCPCS: 36415; 80053; 82306; 85025; G0463

== ENCOUNTER 2021-08-06 09:00 | Outpatient (CLI) | payer MEDICARE, BC, SELFPAY ==
--- NOTE | 2021-08-07 16:09 | ONC FU_ITS ---
Dr. Silverio Patient Follow-Up Note Patient: Claudia Thapa Unit #: [id number]: 1955 Dicatated By: Lenny Silverio M.D.Date of Visit:Aug 06, 2021 Onc Med Follow-up/Prog Note Chief Complaint: Breast cancer. History of Present Illness: This is a 66 year-old woman with grade 2 invasive ductal carcinoma of the right breast, ER/NM positive and HER-2/rodriguez positive. By clinical evaluation, her disease at initial diagnosis appeared to be stage IIIA (T1c, N2, M0). She had presented in February 2014 with a palpable lump in the upper outer quadrant of the right breast near the right axilla. Excisional biopsy of the mass on 03/13/2014 was consistent with metastatic breast carcinoma within an intramammary lymph node. The tumor measured 5.4 cm in greatest dimension. It was noted to be encapsulated. It was ER positive at 99% and NM positive at 32%. The HER-2/rodriguez was 2+ by IHC. It did show overexpression of HER-2/rodriguez by FISH with an amplification ratio of 2.6. Bilateral breast MRI showed an irregular enhancing density in the mid segment of the right breast at the 7 to 8 o'clock position. It was estimated at 1.5 cm to 1.9 cm. Approximately 7 mm posterior to this was a 4 mm enhancing nodule. There were no other suspicious findings in the breast, but there were at least 2 abnormally enlarged lymph nodes in the axilla together measuring 30 to 31 mm and an additional smaller lymph nodes also were identified. There were no abnormal areas noted in the left breast, but there were lymph nodes noted in the left axilla, including one node which was estimated at 1.8 cm. She subsequently underwent ultrasound directed needle biopsies of the 2 right breast lesions, one at 7:30 position which did show invasive ductal carcinoma, grade 2. The other, at the 7 o'clock position, showed fibroadenoma. She was then seen at [facility]. She had further evaluation with repeat right breast ultrasound which showed a 0.8 x 0.7 x 0.3 cm lobular hypoechoic mass in the right breast 7 o'clock position, located 7 cm from the nipple. At the 8 o'clock position in the right breast, 10 cm from the nipple, there was a 1.0 x 0.7 x 0.4 cm irregular hypoechoic mass which was thought to correlate with the known malignancy. A small adjacent hypoechoic focus was thought to most likely represent post biopsy change. Also noted was a 0.9 x 0.6 x 0.3 cm intramammary lymph node with a mildly thickened cortex in the 9 o'clock position, 14 cm from the nipple. It was targeted for needle biopsy. There were at least 7 level I axillary lymph nodes identified, several containing silicone. A 2.1 x 1.8 x 1.7 cm node was targeted for needle biopsy. There were no suspicious level II or level III axillary lymph nodes. A prominent oval hypoechoic lymph node in the right supraclavicular region measuring 0.6 cm also was targeted for needle biopsy. Pathology from the needle biopsies showed metastatic adenocarcinoma consistent with breast primary in the right axillary lymph node, but no malignancy in the right breast intramammary lymph node or in the right supraclavicular lymph node. Her staging evaluation showed no evidence of metastatic disease. Per recommendations from [facility], she was given neoadjuvant chemotherapy with 4 cycles of Adriamycin/cyclophosphamide followed by 4 cycles of Perjeta/Taxotere/Herceptin. She completed her 4th cycle of Adriamycin/cyclophosphamide on 06/13/14. She had a followup visit at [facility] on 07/08/14. A repeat ultrasound study at that time did show evidence of treatment response with a decrease in the size of an index asked her lymph node to 1.7 x 1.2 x 1.1 cm compared to 2.8 x 1.8 x 1.8 cm on the pretreatment study. There were no abnormal internal mammary, infraclavicular or supraclavicular lymph nodes identified. Repeat MRI of the abdomen showed the previously described indeterminate liver lesion to be less conspicuous and likely benign. Additional T2 right liver lesions were felt to be likely reflect atypical hemangiomas and a simple cyst. There was no evidence of metastatic disease. She completed her 1st cycle of Perjeta/Taxotere/Herceptin on 07/12/14. She unfortunately experienced multiple toxicities, including fatigue, nausea, diarrhea, and severe indigestion. She also developed dysequilibrium and she experienced periodic electric shocks, which lasted for about 4 days. She also had generalized bone aching following her Neulasta injection, but she did show gradual recovery. She was given a 20% dose reduction in the Taxotere with the remaining 3 cycles. She completed the 4th cycle on 09/12/14. She underwent right skin-sparing mastectomy, right axillary sentinel lymph node dissection, right axillary lymph node dissection, and left prophylactic skin-sparing mastectomy on 10/23/2014. Pathology of the right breast showed 3 nests of residual invasive viable carcinoma. The appearance was suspicious for presentation as tumor emboli within lymphatic spaces. These measured 1.2 mm in greatest extent. The treated tumor bed measured 0.5 x 0.3 cm. The viable tumor cellularity was estimated at approximately 0.5%. Ductal carcinoma in situ was not identified. There was metastatic carcinoma measuring 0.9 cm in one right sentinel axillary lymph node. Two additional right sentinel axillary lymph nodes were negative, but right axillary lymph node dissection did show involvement in 1/16 lymph nodes measuring 0.8 cm in greatest extent. It was negative for extracapsular extension. Pathologic staging was ypT1a, ypN1a. The left mastectomy showed no malignancy in the breast and no involvement in 2 lymph nodes. Following the mastectomy she continued Herceptin on a 3-week dosing schedule. In November 2014 she also started adjuvant hormonal therapy with Femara. In April 2015 she underwent additional reconstructive surgery, which included removal of the expanders and placement of implants. The procedure also included removal of her Port-A-Cath. In May I had her stop Femara temporarily due to an increase in her musculoskeletal pain, but she had subsequently restarted it. She received her final dose of Herceptin on 07/24/2015. I had seen her for a followup visit on 10/21/2015. At that time she did appear to be having increasing symptoms related to Femara, including fatigue and musculoskeletal pain. I did have her stop the medication again. In November 2015 she was seen because of concerns of a possible new lump in her upper chest. Restaging PET/CT on 12/25/2015 showed no evidence for metabolically active malignancy. As of her follow-up visit on 01/20/2016 she had noted significant symptomatic improvement with stopping Femara. I had then recommended changing her adjuvant hormonal therapy to exemestane. She did agree to start taking it in April 2016. I had seen her for a follow-up visit on 11/25/2016. At that time she reported some mild fatigue with the exemestane, and she also had developed plantar fasciitis. She otherwise appeared to be tolerating the treatment well, and there was no evidence clinically for recurrence of her breast cancer. In February 2017 she had called to report a significant increase in her musculoskeletal pain. It was mainly in the hands and left knee, which also was having lower back pain as well as some pain in the right hip area. She was significantly more fatigued. She stopped the exemestane as of 03/02/2017. I had seen her for a follow-up visit on 03/18/2017. At that point her symptoms had not improved significantly. Bone scan on 03/24/2017 showed arthritic activity in the left knee and left wrist and probable periodontal type activity in the left maxilla. There was no evidence of metastatic disease. During this time she also had seen Dr. Burt. Her evaluation with him included an MRI of the left knee on 03/29/2017. It showed an oblique tear in the posterior horn of the meniscus, a mild sprain in the medial collateral ligament, and osseous contusion of the medial femoral condyle. It was able to be managed conservatively. I had seen her for a followup visit in April 2017. I discussed the possibility of continuing adjuvant hormonal therapy with tamoxifen. She ultimately agreed and began tamoxifen 20 mg daily in May 2017. She was then offered the option to take additional adjuvant therapy with neratinib following its approval for use in HER-2/rodriguez positive breast cancer. She started treatment in July 2017 at the recommended dosage of 240 mg daily. As of her follow-up visit on 11/30/2017, she appeared to be tolerating it with acceptable toxicity. In June 2018, at 10 months of treatment, she stopped both tamoxifen and neratinib due to complaints of pressure in her bladder area. Her CT abdomen/pelvis showed an abnormal appearing uterus with evidence of endometrial cavity and/or subendometrial mass or fibroid. She was referred to Dr. Parham, and on evaluation she ultimately was found to have evidence of endometrial polyp. She then opted to restart the tamoxifen but not the neratinib. 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 She ultimately sought a second opinion evaluation at [facility]. She was originally scheduled to have the implants replaced in September, but the procedure was deferred due to the coronavirus pandemic. In the meantime, she had developed increasing musculoskeletal pain on the tamoxifen, and she opted to stop taking it in December 2019. On 04/24/2020 she underwent replacement of her breast implants. Pathology showed no evidence for implant associated anaplastic large cell lymphoma. She continued expectant management for the breast cancer. Her medical history is otherwise unremarkable. She has had no other medical illnesses. Her baseline bone density was normal, but she did have a low vitamin D level. She is a nonsmoker. INTERIM HISTORY: She is seen for an unplanned visit due to pain in her lateral left chest wall. It has been going on for quite a while, but recently it has been getting worse. She currently is not having any other joint or bone pain, and she has otherwise been feeling good. Medications: C-1000 1 Tablet (of 1000 mg) Oral daily, Cholecalciferol 1 (5000 Units) Capsule Oral daily, Vitamin E 1 Capsule Oral daily Allergies: No Known Allergies. Vital Signs: Performed on Aug 06, 2021 10:34 Height - 66.50 in Weight - 160.8 lbs (HIGH) BSA - 1.83 sq.m BMI - 25.57 Temperature - 98.3 F (LOW) Pulse - 76 /min Respiration - 18 /min BP - 120/82 mm(hg) O2 Sat - 98 % Pain - 5 Fatigue - 0 Physical Examination: Constitutional - She looks good generally, Chest - There is tenderness in the left posterior axillary area. The tenderness appears to localize to the underlying rib. There is no mass or other palpable abnormality. There are no lesions noted in the left chest wall/reconstruction, and there is no axillary adenopathy noted. Problem List: 1. Grade 2 invasive ductal carcinoma of the right breast, ER/NM positive and HER-2/rodriguez positive. By clinical evaluation her disease appeared to be stage IIIA (T1c, N2, M0). Her initial evaluation included excisional biopsy of an upper outer quadrant right breast mass and ultrasound directed needle biopsies of inferior right breast lesions, lateral right breast intramammary lymph node, right axillary lymph node, and right supraclavicular lymph node. 2. On 04/24/2020 she underwent replacement of her breast implants, which had been recalled. Pathology showed no evidence of implant associated anaplastic large cell lymphoma. Problems Addressed with this Encounter and Plan: Patient with grade 2 invasive ductal carcinoma of the right breast, ER/NM positive and HER-2/rodriguez positive. By clinical evaluation her disease appeared to be stage IIIA (T1c, N2, M0). Her initial evaluation included excisional biopsy of an upper outer quadrant right breast mass and ultrasound directed needle biopsies of inferior right breast lesions, lateral right breast intramammary lymph node, right axillary lymph node, and right supraclavicular lymph node. She was then given neoadjuvant chemotherapy with 4 cycles of Adriamycin/cyclophosphamide followed by 4 cycles of Perjeta/Taxotere/Herceptin. She experienced multiple toxicities with the first cycle of PTH, and she received a 20% dose reduction in the Taxotere with cycles 2, 3, and 4. She completed the chemotherapy on 09/12/2014. She underwent right skin sparing mastectomy and left prophylactic skin sparing mastectomy on 10/23/14. The procedure also included right axillary sentinel lymph node dissection and right axillary lymph node dissection. There was minimal residual invasive viable carcinoma in the mastectomy and there was involvement in a total of 2/19 axillary lymph nodes. Final staging was ypT1a, ypN1a. Following the chemotherapy, she continued single agent Herceptin at a 3-week dosing interval, completing 52 weeks of treatment on 07/24/2015. Adjuvant hormonal therapy with Femara began in November 2014. It was stopped temporarily due to increasing joint pain and nausea, but she was then able to restart it. She had stopped Femara permanently as of 10/21/2015 due to increasing fatigue and musculoskeletal pain. A restaging PET/CT on 12/25/2015 showed no evidence for active malignancy. In April 2016 she began further adjuvant hormonal therapy with exemestane 25 mg daily. It was stopped as of February 2017 due to musculoskeletal pain. In May 2017 she began further adjuvant hormonal therapy with tamoxifen 20 mg daily and in July 2017 she also began on adjuvant treatment with neratinib 240 mg daily. In June 2018 both the tamoxifen and the neratinib were put on hold after she was found to have CT evidence of a possible endometrial mass. She was referred to Dr. Parham, and on evaluation she was found to have an endometrial polyp. She had subsequently restarted tamoxifen, but not the neratinib. In December 2019 she stopped tamoxifen due to worsening joint pain. She had improvement in her musculoskeletal pain after stopping tamoxifen, and she also felt better generally. As of her follow-up visit on 04/17/2020 there was no evidence of recurrence of the breast cancer. On 04/24/2020 she underwent replacement of her breast implants, which had been recalled. Pathology showed no evidence of implant associated anaplastic large cell lymphoma. She then continued expectant management for the breast cancer. She is seen now with complaints of pain in the left lateral chest/posterior axillary area. She has tenderness which localizes to the underlying rib. She will be scheduled for x-rays of the chest and left ribs. She will have further evaluation as indicated. Signed By: Lenny Silverio M.D. <<Signature on File>>
== END 2021-08-06 09:01 | disposition home or self-care (01) ==
LOC: ONCMED 09:05
PROVIDERS: PCP Nurse Practitioner Family; Visit Provider Internal Medicine Medical Oncology
DX: Z85.3 Personal history of malignant neoplasm of breast (principal); Z98.86 Personal history of breast implant removal; Z92.21 Personal history of antineoplastic chemotherapy; R07.81 Pleurodynia
CPT/HCPCS: 99214

== ENCOUNTER 2021-08-18 09:55 | Outpatient (CLI) | payer MEDICARE, BC, SELFPAY ==
--- NOTE | 2021-08-18 10:08 | XR_ITS ---
WS: [id number] Chest 2 views, 08/18/2021 Clinical Data: BREAST CANCER Comparison: Two-view chest, 08/15/2020. Findings: No nodules, masses or effusions are seen. The heart is normal. The pulmonary vascularity is not increased. No pneumonia or pneumothorax is seen. The aortic arch and descending thoracic aorta s how minimal tortuosity. XR/XR chest 2V* [id number] Impression: Atherosclerosis.
--- NOTE | 2021-08-18 10:08 | XR_ITS ---
WS: [email or web address] Left rib detail, 2 views, 08/18/2021 Clinical Data: BREAST CANCER Comparison: PA and lateral chest, 08/18/2021 Findings: No rib fractures are seen. There is no bone destruction or erosion. No pneumothorax or subcutaneous e mphysema is seen. There are left axillary surgical clips. XR/XR ribs LT 2V* [id number] Impression: Negative left rib detail.
== END 2021-08-18 09:56 | disposition home or self-care (01) ==
LOC: RAD 10:00
PROVIDERS: PCP Nurse Practitioner Family; Visit Provider Internal Medicine Medical Oncology
DX: C50.511 Malignant neoplasm of lower-outer quadrant of right female breast (principal); I70.90 Unspecified atherosclerosis; R07.81 Pleurodynia
CPT/HCPCS: 71046; 71100

== ENCOUNTER 2021-09-14 08:23 | Outpatient (CLI) | payer MEDICARE, BC, SELFPAY ==
--- NOTE | 2021-09-14 08:33 | NM_ITS ---
WS: [email or web address] NUCLEAR MEDICINE BONE SCAN Radiopharmaceutical: 23.5 Tc-99m MDP mCi IV Injection site: Antecubital Postinjection imaging delay: 1 hr CLINICAL INFORMATION: BREAST CANCER COMPARISON: May 16, 2019 FINDINGS: Bone lesions: There are no osseous lesions suspicious for metastatic disease. Soft tissue contours: Normal. Kidneys: Normal. Other findings: Degenerative type uptake in the AC joints and LEFT mid cervical spine. NM/NM bone scan whole body* [id number] IMPRESSION: No evidence of osseous metastatic disease.
== END 2021-09-14 08:24 | disposition home or self-care (01) ==
PROVIDERS: PCP Nurse Practitioner Family; Visit Provider Internal Medicine Medical Oncology
DX: D05.12 Intraductal carcinoma in situ of left breast (principal)
CPT/HCPCS: 78306; A9561

== ENCOUNTER 2021-12-11 06:00 | Outpatient (RCR) | payer MEDICARE, BC, SELFPAY | END 2021-12-22 23:59 | disposition home or self-care (01) | LOC: SPT 06:00 | PROVIDERS: PCP Nurse Practitioner Family; Referring Provider Internal Medicine Medical Oncology; Visit Provider Internal Medicine Medical Oncology | DX: I89.0 Lymphedema, not elsewhere classified (principal) | CPT/HCPCS: 97161 ==

== ENCOUNTER 2021-12-23 06:00 | Outpatient (RCR) | payer MEDICARE, BC, SELFPAY | END 2022-01-21 23:59 | disposition home or self-care (01) | LOC: SPT 06:00 | PROVIDERS: PCP Nurse Practitioner Family; Referring Provider Internal Medicine Medical Oncology; Visit Provider Internal Medicine Medical Oncology | DX: I89.0 Lymphedema, not elsewhere classified (principal) | CPT/HCPCS: 97110 ==

== ENCOUNTER 2022-07-06 08:00 | Oncology outpatient (recurring) (ONCR) | payer MEDICARE, BC, SELFPAY ==
[2022-06-24 11:32] LABS: Basophils # 0.1 10^3/uL (0.0-0.1); Basophils % 0.7 %; Eosinophils # 0.1 10^3/uL (0.0-0.8); Eosinophils % 1.6 %; Hematocrit 43.4 % (37.0-47.0); Hemoglobin 14.4 g/dL (11.5-15.3); Lymphocytes # 2.7 10^3/uL (0.8-4.8); Lymphocytes % 35.6 %; Mean Corpuscular HGB Conc 33.2 g/dL (30.0-36.0); Mean Corpuscular Hemoglobin 30.2 pg (28.0-34.0); Mean Platelet Volume 8.7 fL (7.4-10.4); Monocytes # 0.6 10^3/uL (0.2-0.9); Monocytes % 7.7 %; Neutrophils # 4.09 10^3/uL (1.8-7.7); Neutrophils % 54.1 %; Nucleated Red Blood Cells % 0 %; Platelet Count 305 10^3/cmm (130-400); Red Blood Count 4.77 10^6/uL (4.1-5.3); Red Cell Distribution Width 14.3 % (12.1-15.1); White Blood Count 7.6 10^3/uL (4.0-10.0)
[2022-06-24 11:57] LABS: Alanine Aminotransferase 19 U/L (0-33); Albumin Level 4.5 g/dL (3.5-5.2); Alkaline Phosphatase 92 U/L (35-105); Anion Gap 11.5 (5-19); Aspartate Amino Transferase 23 U/L (0-32); Blood Urea Nitrogen 21 mg/dL (8-23); CA 15-3 30.4 U/mL (0-25); Carbon Dioxide 31 mmol/L (22-29); Chloride 99 mmol/L (98-107); Globulin 3.1 g/dL (1.3-4.6); Glomerular Filtration Rate 83.5 mL/min (90-130); Glucose 99 mg/dL (65-115); Osmolality Calculated 289 mOsm/kg (285-295); Potassium 3.5 mmol/L (3.5-5.1); Sodium 138 mmol/L (136-145); Total Bilirubin 0.3 mg/dL (0.15-1.2); Total Protein 7.6 g/dL (6.6-8.7)
--- NOTE | 2022-07-06 08:55 | NM_ITS ---
WS: [email or web address] NUCLEAR MEDICINE BONE SCAN Radiopharmaceutical: 25.1 Tc-99m MDP mCi IV Injection site: RIGHT antecubital Postinjection imaging delay: 1 hr CLINICAL INFORMATION: pain in right rib cage COMPARISON: 09/14/2021 and 05/16/2019 FINDINGS: Bone lesions: There are no osseous lesions suspicious for metastatic disease. Focal uptake in the RIG HT humerus laterally near the greater tuberosity likely due to patient's reported recent fracture. Soft tissue contours: Normal. Kidneys: Normal. Other findings: Degenerative type uptake involving the AC joints RIGHT greater than LEFT. Degenerativ e uptake involving both kidneys. NM/NM bone scan whole body* [id number] IMPRESSION: 1. No evidence of osseous metastatic disease. 2. Focal uptake in the RIGHT proximal humerus laterally likely due to patient' s reported history of recent proximal humerus fracture. No recent humerus imagi ng available. If clinical concern for pathologic fracture, CT or MRI could be o btained. 3. No other suspicious findings.
== END 2022-07-24 23:59 | disposition home or self-care (01) ==
LOC: RAD 08:13 → ONCMED 07-07 07:06
PROVIDERS: PCP Nurse Practitioner Family; Visit Provider Internal Medicine Medical Oncology
DX: R07.81 Pleurodynia (principal)
CPT/HCPCS: 36415; 78306; 80053; 85025; 86300; 99214; A9561

== ENCOUNTER 2022-08-09 12:17 | Outpatient (CLI) | payer MEDICARE, BC, SELFPAY ==
[2022-08-09 13:31] LABS: 25 Hydroxy Vitamin D 78 ng/mL (30-100); CA 15-3 30.6 U/mL (0-25)
== END 2022-08-09 12:18 | disposition home or self-care (01) ==
LOC: LAB 12:21
PROVIDERS: PCP Nurse Practitioner Family; Visit Provider Internal Medicine Medical Oncology
DX: C50.511 Malignant neoplasm of lower-outer quadrant of right female breast (principal); E55.9 Vitamin D deficiency, unspecified
CPT/HCPCS: 36415; 82306; 86300

== ENCOUNTER 2022-09-21 10:13 | Oncology outpatient (recurring) (ONCR) | payer MEDICARE, BC, SELFPAY ==
[2022-09-21 10:43] LABS: Basophils % 0.7 %; Eosinophils # 0.1 10^3/uL (0.0-0.8); Eosinophils % 1.1 %; Hematocrit 40.3 % (37.0-47.0); Hemoglobin 13.3 g/dL (11.5-15.3); Lymphocytes % 36.8 %; Mean Corpuscular Hemoglobin 30.1 pg (28.0-34.0); Mean Corpuscular Volume 91.2 fl (81-99); Monocytes # 0.6 10^3/uL (0.2-0.9); Monocytes % 10.4 %; Neutrophils # 2.73 10^3/uL (1.8-7.7); Neutrophils % 50.8 %; Nucleated Red Blood Cells % 0 %; Platelet Count 270 10^3/cmm (130-400); Red Blood Count 4.42 10^6/uL (4.1-5.3); Red Cell Distribution Width 13.8 % (12.1-15.1); White Blood Count 5.4 10^3/uL (4.0-10.0)
[2022-09-21 11:13] LABS: Alanine Aminotransferase 16 U/L (0-33); Albumin Level 4.3 g/dL (3.5-5.2); Alkaline Phosphatase 94 U/L (35-105); Anion Gap 15.1 (5-19); Aspartate Amino Transferase 22 U/L (0-32); Blood Urea Nitrogen 22 mg/dL (8-23); CA 15-3 29.1 U/mL (0-25); Calcium 9.4 mg/dL (8.5-10.5); Carbon Dioxide 28 mmol/L (22-29); Chloride 99 mmol/L (98-107); Globulin 2.3 g/dL (1.3-4.6); Glomerular Filtration Rate 99.7 mL/min (90-130); Glucose 116 mg/dL (65-115); Osmolality Calculated 290 mOsm/kg (285-295); Potassium 4.1 mmol/L (3.5-5.1); Sodium 138 mmol/L (136-145); Total Bilirubin 0.2 mg/dL (0.15-1.2); Total Protein 6.6 g/dL (6.6-8.7)
== END 2022-09-21 23:59 | disposition home or self-care (01) ==
PROVIDERS: PCP Nurse Practitioner Family; Visit Provider Internal Medicine Medical Oncology
DX: Z08 Encounter for follow-up examination after completed treatment for malignant neoplasm (principal); Z85.3 Personal history of malignant neoplasm of breast; Z90.13 Acquired absence of bilateral breasts and nipples; Z92.21 Personal history of antineoplastic chemotherapy; S42.291G Other displaced fracture of upper end of right humerus, subsequent encounter for fracture with delayed healing; X58.XXXD Exposure to other specified factors, subsequent encounter
CPT/HCPCS: 80053; 85025; 86300; 99213

== ENCOUNTER 2023-06-29 07:58 | Outpatient (CLI) | payer MEDICARE, BC, SELFPAY ==
--- NOTE | 2023-06-29 08:03 | MR_ITS ---
WS: [email or web address] MRI THORACIC SPINE WITH CONTRAST TECHNIQUE: Sagittal T1, T2 and STIR imaging. Axial T2 imaging. Post gadolinium imaging was obtained. CLINICAL INFORMATION: PAIN COMPARISON: None. FINDINGS: Mild thoracic curve. Mild thoracic kyphosis. No acute compression fractures. No high-grade central ca nal stenosis. Cord signal is normal. No abnormal gadolinium enhancement. Tiny central protrusions in the cervical spine technician chemical cleaning imaging at C4-C5 C5-C6 and C6-C7. Tiny RIGHT par acentral protrusion T1-T2. Tiny central protrusion T12-L1. No evidence of enhancing metastatic disease. Normal CSF pulsation artifact in the dorsal spinal canal . No abnormal gadolinium enhancement. Moderate facet arthropathy lower thoracic spine. No high-grade spinal canal or foraminal narrowing. Adrenal glands are normal. Small LEFT renal cyst. IMPRESSION: 1. No acute thoracic spine findings. 2. No abnormal gadolinium enhancement. No evidence of enhancing metastatic disease. 3. Spinal canal is patent. 4. Aneurysmal ascending thoracic aorta partially visualized measuring approximately 3.9 cm. This can be further evaluated with CTA.
[2023-06-29] MEDS: gadobenate dimeglumine 20 mL vial IV (09:08)
== END 2023-06-29 07:59 | disposition home or self-care (01) ==
LOC: RAD 07:58
PROVIDERS: PCP Nurse Practitioner Family; Visit Provider Nurse Practitioner Family
DX: M54.6 Pain in thoracic spine (principal)
CPT/HCPCS: 72157; A9577